=== PATIENT | female | born 1995 | race American Indian/Alaskan Native ===

== ENCOUNTER 2021-02-14 21:48 | Emergency (ER) | payer MEDICAID ==
[2021-02-14 23:38] VITALS: BP 113/77
[2021-02-15] MEDS ORDERED: IBUPROFEN 600 MG TAB PO ONE ×2 (02:30→02:31)
--- NOTE | 2021-02-15 02:31 | Emergency Department Report ---
ED Female HPI - General Chief complaint: Vaginal Bleeding Stated complaint: HEAVY BLEEDING/CLOTTING Source: patient Mode of arrival: Ambulatory Limitations: No Limitations - History of Present Illness Initial comments: 25-year-old -[place] female presents to the emergency room complaining of severe heavy menstrual cycle. Patient reports that her copper T IUD came out yesterday without any trauma. Patient states that she has been having clots and heavy cramping. Patient reports she took ibuprofen yesterday no pain medicine today. 3 para 3. Patient reports to just had the IUD for 2 months. MD Complaint: vaginal discharge, pelvic pain Onset/Timin -: days(s) Location: suprapubic Severity: severe Quality: cramping, sharp Consistency: constant Improves with: none Worsens with: none Are you Now?: No - Related Data Allergies Allergy/AdvReac Type Severity Reaction Status Date / Time shrimp Allergy Itching Verified 02/14/21 23:29 ED Review of Systems ROS: Stated complaint: HEAVY BLEEDING/CLOTTING Other details as noted in HPI ED Past Medical Hx - Past Medical History Previous Medical History?: No - Surgical History Additional Surgical History: ECTOPIC PREG 2009, C SECTION X 3 MONTS AGO , 2017 - Social History Smoking Status: Never Smoker Substance Use Type: None ED Physical Exam - General Limitations: No Limitations ( ) General appearance: alert, in no apparent distress - Head Head exam: Present: atraumatic, normocephalic - Eye Eye exam: Present: normal appearance - ENT ENT exam: Present: mucous membranes moist - Neck Neck exam: Present: normal inspection - Respiratory Respiratory exam: Present: normal lung sounds bilaterally. Absent: respiratory distress - Cardiovascular Cardiovascular Exam: Present: regular rate, normal rhythm. Absent: systolic murmur, diastolic murmur, rubs, gallop - GI/Abdominal GI/Abdominal exam: Present: soft, normal bowel sounds - Extremities Exam Extremities exam: Present: normal inspection - Back Exam Back exam: Present: normal inspection - Neurological Exam Neurological exam: Present: alert, oriented X3 - Psychiatric Psychiatric exam: Present: normal affect, normal mood - Skin Skin exam: Present: warm, dry, intact, normal color. Absent: rash ED Course Vital Signs 02/14/21 23:36 Temperature 98.3 F Pulse Rate 75 Respiratory 16 Rate Blood Pressure 113/77 O2 Sat by Pulse 99 Oximetry ED Medical Decision Making - Lab Data Result diagrams: 02/15/21 02:34 - Medical Decision Making 25-year-old -[place] female presents to the emergency room complaining of severe heavy menstrual cycle. Patient reports that her copper T IUD came out yesterday without any trauma. Patient states that she has been having clots and heavy cramping. Patient reports she took ibuprofen yesterday no pain medicine today. 3 para 3. Patient reports to just had the IUD for 2 months. CBC is within normal limits no signs of anemia. Discussed with patient she can take ibuprofen or Tylenol for pain management. Discussed with patient to follow-up with her BLENDING OPERATOR. Recommend to use backup control until you are seen by your BLENDING OPERATOR. Critical care attestation.: If time is entered above; I have spent that time in minutes in the direct care of this critically ill patient, excluding procedure time. ED Disposition Clinical Impression: Dysmenorrhea Disposition: DC-01 TO HOME OR SELFCARE Is pt being admited?: No Does the pt Need Aspirin: No Condition: Stable Instructions: Dysmenorrhea, [id number] Additional Instructions: CBC is within normal limits there is no signs of anemia. Please use backup control until you are seen by your BLENDING OPERATOR. Ibuprofen Tylenol or naproxen as needed for menstrual cramps. Referrals: PRIMARY CARE, [Primary Care Provider] - 3-5 Days [facility] [Provider Group] - 3-5 Days [facility] [Provider Group] - 3-5 Days [facility] [Provider Group] - 3-5 Days Forms: Work/School Release Form(ED)
[2021-02-15 03:00] LABS: Basophils % (Auto) 0.5 % (0.0-1.8); Eosinophils # (Auto) 0.3 K/mm3 (0.0-0.4); Eosinophils % (Auto) 4.2 % (0.0-4.3); Hematocrit 36.5 % (30.3-42.9); Lymphocytes # (Auto) 2.9 K/mm3 (1.2-5.4); Lymphocytes % (Auto) 36.3 % (13.4-35.0); Mean Corpuscular HGB Conc 33 % (30-34); Mean Corpuscular Volume 90 fl (79-97); Monocytes # (Auto) 0.9 K/mm3 (0.0-0.8); Monocytes % (Auto) 10.8 % (0.0-7.3); Platelet Count 272 K/mm3 (140-440); Red Blood Count 4.07 M/mm3 (3.65-5.03); Red Cell Distribution Width 14.9 % (13.2-15.2)
== END 2021-02-15 00:15 | disposition home or self-care (01) ==
LOC: EDBD → ED 21:48
DX: N94.6 Dysmenorrhea, unspecified (principal); Z91.013 Allergy to seafood; Z98.890 Other specified postprocedural states
CPT/HCPCS: 36415; 85025; 99283